=== PATIENT | male | born 1970 | race Caucasian/White ===

== ENCOUNTER 2018-08-18 09:01 | Inpatient (IN) | payer OTHER ==
[2018-08-18 09:38] VITALS: BMI 29.8
--- NOTE | 2018-08-18 10:17 | HP ---
CIWA Score Nausea/Vomitin Muscle Tremors: 2 Anxiety: 2 Agitation: 2 Paroxysmal Sweats: 1-Minimal Palms Moist Orientation: 0-Oriented Tacttile Disturbances: 1-Very Mild Itch/Numbness Auditory Disturbances: 1-Very Mild Visual Disturbances: 0-None Headache: 2-Mild CIWA-Ar Total Score: 13 - Admission Criteria OASAS Guidelines: Admission for Medically Managed Detox: Requires at least one of the followin. CIWA greater than 12 2. Seizures within the past 24 hours 3. Delirium tremens within the past 24 hours 4. Hallucinations within the past 24 hours 5. Acute intervention needed for co occurring medical disorder 6. Acute intervention needed for co occurring psychiatric disorder 7. Severe withdrawal that cannot be handled at a lower level of care (continued vomiting, continued diarrhea, abnormal vital signs) requiring intravenous medication and/or fluids 8. Admission ROS S - [facility] Chief Complaint: i i need help to stop drinking alcohol.cocaine,marijuana,mmtp 110 mgs/day,last medicated 08/17/18 multiple admissions in detox,last detox 05/15 at [facility] hypertension below knee amputation right 05/15 at [facility] hiv since 1990 seizure last 05/15 syncope alcohol related nicotine dependence 4 cigarette/day,does not need nicotine replacement confined to wheelchair,no prosthesis hypertension cirrhosis longest sobriety 15 years plan for rehab Allergies/Adverse Reactions: Allergies Allergy/AdvReac Type Severity Reaction Status Date / Time bee venom protein (honey bee) Allergy Verified 08/18/18 09:28 levofloxacin Allergy Verified 08/18/18 09:28 quetiapine [From Seroquel] Allergy Verified 08/18/18 09:28 History of Present Illness: this 47 years old male with alcohol dependence,cocaine,marijuana dependence, heroin abused,mmtp 110 mgs/day,last medictaed today, for detox as mentioned in chief complaint Exam Limitations: No Limitations - Ebola screening Have you traveled outside of the country in the last 21 days: No Have you had contact with anyone from an Ebola affected area: No Do you have a fever: No - Review of Systems Constitutional: Chills, Loss of Appetite, Night Sweats, Changes in sleep, Weakness, Unintentional Wgt. Loss EENT: reports: Tearing, Nose Congestion Respiratory: reports: Other (copd) Cardiac: reports: No Symptoms Reported GI: reports: Nausea, Poor Appetite, Abdominal cramping : reports: No Symptoms Reported Musculoskeletal: reports: Back Pain, Muscle Pain Integumentary: reports: Dryness Neuro: reports: Headache, Tremors Endocrine: reports: No Symptoms Reported Hematology: reports: No Symptoms Reported, Other (hiv) Psychiatric: reports: No Sypmtoms Reported, Judgement Intact, Mood/Affect Appropiate, Orientated x3, other (bipolar disorder) Patient History - Patient Medical History Hx Anemia: No Hx Asthma: No Hx Chronic Obstructive Pulmonary Disease (COPD): Yes (on albuterol and symbicort ) Hx Cancer: No Hx Cardiac Disorders: No Hx Congestive Heart Failure: No Hx Hypertension: Yes (non compliance) Hx Hypercholesterolemia: Yes (non compliance) Hx Pacemaker: No HX Cerebrovascular Accident: No Hx Seizures: Yes (last 05/15) Hx Dementia: No Hx Diabetes: No Hx Gastrointestinal Disorders: No Hx Liver Disease: No Hx Genitourinary Disorders: No Hx Sexually Transmitted Disorders: No (gonorrhea) Hx Renal Disease (ESRD): No Hx Thyroid Disease: No Hx Human Immunodeficiency Virus (HIV): Yes (since 1990) Hx Hepatitis C: No Hx Depression: No Hx Suicide Attempt: Yes (try to hang himsel,saved by exwife) Hx Bipolar Disorder: Yes (no medication) Hx Schizophrenia: No Other Medical History: no suicidal,no homicidal - Patient Surgical History Past Surgical History: Yes Hx Orthopedic Surgery: Yes (fx right ankle in 2005) Other Surgical History: below knee amputation right 05/15 in [facility] - PPD History Previous Implant?: Yes Documented Results: Negative w/proof Implanted On Prior [facility] Admission?: No PPD to be Administered?: Yes - Smoking Cessation Smoking history: Current every day smoker Have you smoked in the past 12 months: Yes Aproximately how many cigarettes per day: 5 Cigars Per Day: 0 Hx Chewing Tobacco Use: No Initiated information on smoking cessation: Yes 'Breaking Loose' booklet given: 08/18/18 - Substance & Tx. History Hx Alcohol Use: Yes Hx Substance Use: Yes Substance Use Type: Alcohol, Cocaine, Heroin, Marijuana Hx Substance Use Treatment: Yes (05/15 [facility]) - Substances abused Alcohol Substance route: Oral Frequency: Daily Amount used: 4 PINTS OF VODKA Age of first use: 14 Date of last use: 08/17/18 Cocaine Substance route: Smoking Frequency: Daily Amount used: 100$ Age of first use: 17 Date of last use: 08/17/18 Marijuana/Hashish Substance route: Smoking Frequency: 1-2 times per week Amount used: 10$ Age of first use: 12 Date of last use: 08/12/18 Heroin Substance route: Injection Frequency: 1-3 times last 30 days Amount used: 1 bag Age of first use: 15 Date of last use: 08/17/18 Family Disease History - Family Disease History Family Disease History: Other: Father (dsa,) Admission Physical Exam S - Vital Signs Vital Signs: Vital Signs - 24 hr 08/18/18 09:29 Temperature 97.3 F L Pulse Rate 67 Respiratory 18 Rate Blood Pressure 148/95 - Physical General Appearance: Yes: Moderate Distress, Tremorous, Irritable, Sweating, Anxious HEENTM: Yes: Normal ENT Inspection, CAMI, Pharynx Normal Respiratory: Yes: Within Normal Limits, Lungs Clear, Normal Breath Sounds Neck: Yes: Within Normal Limits, No masses,lesions,Nodules, Supple, Trachea in good position Breast: Yes: Within Normal Limits Cardiology: Yes: Within Normal Limits, Regular Rhythm, Regular Rate, S1, S2 Abdominal: Yes: Within Normal Limits, Normal Bowel Sounds, Non Tender, Soft Genitourinary: Yes: Within Normal Limits Back: Yes: Muscle Spasm Musculoskeletal: Yes: Back pain, Muscle Pain Extremities: Yes: Tremors, Other (s/p below knee amputation right) Neurological: Yes: poundmaster II-XII NML intact, Fully Oriented, Alert, Motor Strength 5/5 Integumentary: Yes: Dry Lymphatic: Yes: Within Normal Limits - Diagnostic (1) Alcohol dependence with uncomplicated withdrawal Current Visit: Yes Status: Acute (2) Cocaine dependence Current Visit: Yes Status: Acute (3) Cannabis abuse Current Visit: Yes Status: Acute (4) Heroin abuse Current Visit: Yes Status: Acute (5) Methadone maintenance therapy patient Current Visit: Yes Status: Acute (6) HIV (human immunodeficiency virus infection) Current Visit: Yes Status: Acute (7) COPD (chronic obstructive pulmonary disease) Current Visit: Yes Status: Acute (8) IVDU (intravenous drug user) Current Visit: Yes Status: Acute (9) Dehydration Current Visit: Yes Status: Acute (10) History of right below knee amputation Current Visit: Yes Status: Acute (11) Wheelchair confinement Current Visit: Yes Status: Acute (12) Cirrhosis Current Visit: Yes Status: Acute (13) Bipolar disorder Current Visit: Yes Status: Acute (14) History of suicide attempt Current Visit: Yes Status: Acute Cleared for Admission [facility] - Detox or Rehab [facility] Level of Care: Medically Managed (for ativan regimen) Inpatient Rehab Admission - Rehab Decision to Admit Inpatient rehab admission?: No
[2018-08-18] MEDS ORDERED: hydrOXYzine PAMOATE 25 MG CAPSULE (FP) PO PRN (10:37)
[2018-08-18] MEDS ORDERED: IBUPROFEN 400 MG TABLET (FP) PO PRN (10:37)
[2018-08-18] MEDS ORDERED: LORazepam 1 MG TABLET PO PRN (10:37)
[2018-08-18] MEDS ORDERED: BISMUTH SUBSALICYLATE 262 MG/15 ML BTL PO PRN (10:37)
[2018-08-18] MEDS ORDERED: ACETAMINOPHEN 325 MG TABLET (FP) PO PRN ×2 (10:37)
[2018-08-18] MEDS ORDERED: MELATONIN 5 MG TABLETS PO PRN (10:37)
[2018-08-18] MEDS ORDERED: METHOCARBAMOL 500 MG TABLET PO PRN (10:37)
[2018-08-18] MEDS ORDERED: MAGNESIUM HYDROX 2400MG/30ML ORAL SUSPENSION 30 ML CUP PO PRN (10:37)
[2018-08-18] MEDS ORDERED: MAG HYDROX/AL HYDROX/SIMETH 30 ML UNIT-DOSE CUP PO PRN (10:37)
[2018-08-18] MEDS ORDERED: MAGNESIUM CITRATE 300 ML BOTTLE PO PRN (10:37)
[2018-08-18] MEDS ORDERED: MENTHOL/PHENOL 1 EACH UD MM PRN (10:37)
[2018-08-18] MEDS ORDERED: ALBUTEROL SO4 8 GM HFA INHALER IH PRN (10:43)
[2018-08-18] MEDS: LORazepam 2 MG TABLET PO SCH ×3 (11:36→22:15)
[2018-08-18] MEDS ORDERED: METHADONE HCL 10 MG TABLET PO ONE (11:37)
[2018-08-18] MEDS ORDERED: METHADONE 80 MG, METHADONE 30 MG PO ONE (11:45)
[2018-08-18] MEDS ORDERED: METHADONE HCL 10 MG TABLET ONE (11:48)
[2018-08-18] MEDS ORDERED: METHADONE HCL 40 MG DISPERSABLE TABLET ONE (11:48)
--- NOTE | 2018-08-18 12:30 | EKG ---
Test Reason : Blood Pressure : / mmHG Vent. Rate : 053 BPM Atrial Rate : 053 BPM P-R Int : 146 ms QRS Dur : 078 ms QT Int : 518 ms P-R-T Axes : 006 000 016 degrees QTc Int : 486 ms SINUS BRADYCARDIA PROLONGED QT ABNORMAL ECG NO PREVIOUS ECGS AVAILABLE Confirmed by CEDRIC BUTLER, ANITHA ([id number]) on 08/18/2018 12:29:26 PM Referred By: RONALDO CREWS Confirmed By:ANITHA STEELE MD
--- NOTE | 2018-08-18 13:09 | PN ---
[facility] Progress Note Note: right knee amputation ambulating with wheelchair patient's wheelchair can not pass bathroom door order crutches for interim ambulation device patient had physical rehab to learn to use crutches
[2018-08-18 14:42] LABS: ALBUMIN 3.2 g/dl (3.4-5.0); ALK PHOS 103 U/L (45-117); ANION GAP 8 MMOL/L (8-16); BILIRUBIN,TOTAL 0.6 mg/dL (0.2-1); BLOOD UREA NITROGEN 10 mg/dL (7-18); CALCIUM 8.9 mg/dL (8.5-10.1); CHLORIDE 100 mmol/L (98-107); CO2 27 mmol/L (21-32); CREATININE 0.9 mg/dL (0.55-1.3); GLUCOSE,RANDOM 75 mg/dL (74-106); POTASSIUM 3.6 mmol/L (3.5-5.1); SGOT/AST 28 U/L (15-37); SGPT/ALT 18 U/L (13-61); SODIUM 135 mmol/L (136-145); TOT PROT 7.4 g/dl (6.4-8.2)
[2018-08-18 14:43] LABS: HEMATOCRIT 35.9 % (35.4-49); HEMOGLOBIN 11.8 GM/dL (11.7-16.9); MCH 27.5 pg (25.7-33.7); MCHC 32.8 g/dl (32.0-35.9); MEAN CELL VOLUME 84.1 fl (80-96); MEAN PLT VOLUME 9.3 fl (7.5-11.1); PLATELET COUNT 64 K/MM3 (134-434); RBC 4.27 M/mm3 (4.00-5.60); RDW 21.1 % (11.9-15.9); WHITE BLOOD COUNT 3.1 K/mm3 (4.0-10.0)
[2018-08-18 15:07] LABS: EPI CELLS 1.2 /HPF (0-5/HPF); URINE APPEARANCE CLEAR; URINE BACTERIA 1.5 /hpf (NEGATIVE); URINE BILIRUBIN NEGATIVE (NEGATIVE); URINE CASTS 3 /lpf (0-8); URINE COLOR DK YELLOW; URINE GLUCOSE (UA) NEGATIVE (NEGATIVE); URINE KETONE TRACE (NEGATIVE); URINE LEUK ESTERASE TRACE (NEGATIVE); URINE NITRITE NEGATIVE (NEGATIVE); URINE PROTEIN TRACE (NEGATIVE); URINE RBC 76 /hpf (0-4); URINE WBC 2 /hpf (0-5)
[2018-08-18 15:24] LABS: URINE CRYSTALS CALCIUM OXALATE /hpf
[2018-08-18] MEDS: THIAMINE HCL 100 MG TABLET (FP) PO SCH (22:15)
[2018-08-18] MEDS: BUDESONIDE/FORMETEROL FUMARATE 160/4.5 mcg INHALER IH SCH (22:19)
[2018-08-19] MEDS ORDERED: METHADONE HCL 10 MG TABLET ONE (04:22)
[2018-08-19] MEDS ORDERED: METHADONE HCL 40 MG DISPERSABLE TABLET ONE (04:22)
[2018-08-19] MEDS: LORazepam 2 MG TABLET PO SCH (05:18)
[2018-08-19] MEDS: METHADONE 80 MG, METHADONE 30 MG PO SCH (05:18)
[2018-08-19] MEDS ORDERED: METHADONE HCL 40 MG DISPERSABLE TABLET PO SCH (06:00)
[2018-08-19] MEDS: PRENATAL VITAMINS W/ FOLIC ACID TABLET (FP) PO SCH (10:18)
[2018-08-19] MEDS: BUDESONIDE/FORMETEROL FUMARATE 160/4.5 mcg INHALER IH SCH ×2 (10:18→22:55)
[2018-08-19] MEDS: PATIENT'S OWN MEDICATION (NON-FORMULARY) (Elviteg/Cob/Emtri/Tenof Alafen 1 EACH) PO SCH (10:18)
--- NOTE | 2018-08-19 10:36 | PN ---
[facility] CIWA - CIWA Score Nausea/Vomitin-Mild Nausea/No Vomiting Muscle Tremors: 3 Anxiety: 1-Mildly Anxious Agitation: 2 Paroxysmal Sweats: 1-Minimal Palms Moist Orientation: 2-Disoriented Date<2 days Tacttile Disturbances: 0-None Auditory Disturbances: 0-None Visual Disturbances: 0-None Headache: 1-Very Mild CIWA-Ar Total Score: 11 [facility] Progress Note (SOAP) Subjective: right below knee amputatin on 04/2018 ambulating with wheelchair and crutches patient wants to return to [facility] where his mother lives after detox Objective: 08/19/18 10:34 Vital Signs Temperature 96 F L 08/19/18 09:12 Pulse Rate 78 08/19/18 09:12 Respiratory Rate 18 08/19/18 09:12 Blood Pressure 148/82 08/19/18 09:12 O2 Sat by Pulse Oximetry (%) Laboratory Last Values WBC 3.1 K/mm3 (4.0-10.0) L 08/18/18 11:00 RBC 4.27 M/mm3 (4.00-5.60) 08/18/18 11:00 Hgb 11.8 GM/dL (11.7-16.9) 08/18/18 11:00 Hct 35.9 % (35.4-49) 08/18/18 11:00 MCV 84.1 fl (80-96) 08/18/18 11:00 MCH 27.5 pg (25.7-33.7) 08/18/18 11:00 MCHC 32.8 g/dl (32.0-35.9) 08/18/18 11:00 RDW 21.1 % (11.9-15.9) H 08/18/18 11:00 Plt Count 64 K/MM3 (134-434) L 08/18/18 11:00 MPV 9.3 fl (7.5-11.1) 08/18/18 11:00 Sodium 135 mmol/L (136-145) L 08/18/18 11:00 Potassium 3.6 mmol/L (3.5-5.1) 08/18/18 11:00 Chloride 100 mmol/L (98-107) 08/18/18 11:00 Carbon Dioxide 27 mmol/L (21-32) 08/18/18 11:00 Anion Gap 8 MMOL/L (8-16) 08/18/18 11:00 BUN 10 mg/dL (7-18) 08/18/18 11:00 Creatinine 0.9 mg/dL (0.55-1.3) 08/18/18 11:00 Creat Clearance w eGFR 90.45 (>60) 08/18/18 11:00 Random Glucose 75 mg/dL (74-106) 08/18/18 11:00 Calcium 8.9 mg/dL (8.5-10.1) 08/18/18 11:00 Total Bilirubin 0.6 mg/dL (0.2-1) 08/18/18 11:00 AST 28 U/L (15-37) 08/18/18 11:00 ALT 18 U/L (13-61) 08/18/18 11:00 Alkaline Phosphatase 103 U/L (45-117) 08/18/18 11:00 Total Protein 7.4 g/dl (6.4-8.2) 08/18/18 11:00 Albumin 3.2 g/dl (3.4-5.0) L 08/18/18 11:00 Urine Color Dk yellow 08/18/18 12:00 Urine Appearance Clear 08/18/18 12:00 Urine pH 6.0 (5.0-8.0) 08/18/18 12:00 Ur Specific [place] 1.022 (1.010-1.035) 08/18/18 12:00 Urine Protein Trace (NEGATIVE) 08/18/18 12:00 Urine Glucose (UA) Negative (NEGATIVE) 08/18/18 12:00 Urine Ketones Trace (NEGATIVE) H 08/18/18 12:00 Urine Blood 2+ (NEGATIVE) H 08/18/18 12:00 Urine Nitrite Negative (NEGATIVE) 08/18/18 12:00 Urine Bilirubin Negative (NEGATIVE) 08/18/18 12:00 Urine Urobilinogen 1.0 mg/dL (0.2-1.0) 08/18/18 12:00 Ur Leukocyte Esterase Trace (NEGATIVE) 08/18/18 12:00 Urine WBC (Auto) 2 /hpf (0-5) 08/18/18 12:00 Urine RBC (Auto) 76 /hpf (0-4) 08/18/18 12:00 Urine Casts (Auto) 3 /lpf (0-8) 08/18/18 12:00 U Epithel Cells (Auto) 1.2 /HPF (0-5/HPF) 08/18/18 12:00 Urine Crystals (Auto) Calcium oxalate /hpf 08/18/18 12:00 Urine Bacteria (Auto) 1.5 /hpf (NEGATIVE) 08/18/18 12:00 RPR Titer Nonreactive (NONREACTIVE) 08/18/18 11:00 lab noted Assessment: 08/19/18 10:35 alcohol withdrawal sx Plan: continue detox
[2018-08-19] MEDS ORDERED: LORazepam 1 MG TABLET PO ONE (11:50)
--- NOTE | 2018-08-19 12:18 | CONSULT ---
[facility] Psychiatric Consult - Data Date of interview: 08/19/18 Admission source: [facility] Identifying data: Patient is a 47 year male, , father of two, unemployed , and is supported by [employer]. This is patient's first admission to detox at [facility]. Patient admitted to for alcohol, cocaine, marijuana and opiate dependence. Substance Abuse History: Smoking Cessation. Smoking history: Current every day smoker. Have you smoked in the past 12 months: Yes. Aproximately how many cigarettes per day: 5. Cigars Per Day: 0. Hx Chewing Tobacco Use: No. Initiated information on smoking cessation: Yes. 'Breaking Loose' booklet given : 08/18/18. - Substance & Tx. History. Hx Alcohol Use: Yes. Hx Substance Use : Yes. Substance Use Type: Alcohol, Cocaine, Heroin, Marijuana. Hx Substance Use Treatment: Yes (05/15 [facility]). - Substances abused. Alcohol. Substance route: Oral. Frequency: Daily. Amount used: 4 PINTS OF VODKA. Age of first use: 14. Date of last use: 08/17/18. Cocaine. Substance route: Smoking. Frequency: Daily. Amount used: 100$. Age of first use: 17. Date of last use: 08/17/18. Marijuana/Hashish. Substance route: Smoking. Frequency : 1-2 times per week. Amount used: 10$. Age of first use: 12. Date of last use: 08/12/18. Heroin. Substance route: Injection. Frequency: 1-3 times last 30 days. Amount used: 1 bag. Age of first use: 15. Date of last use: Medical History: Significant for fx right ankle in 2005, below knee amputation right 05/15 in [facility], hypertension, Hypercholesterolemia, HIV, Seizures Psychiatric History: Patient reports h/o multiple psychiatric hospitalizations, most recently five years ago at [facility] in [place], [place] after having manic symtoms. He reports being admitted for three weeks and was diagnosed with bipolar disorder. Patient is also known to [facility]. Mr. Luis reports a total of two suicide attempts by overdose and attempting to hang himself. Mr. Luis reports most recently receiving outpatient psychiatric care at [facility] two years ago. He reports being tried on depakote + lithium+ ativan+ klonopin + Seroquek (allergic) + trazodone in the past. Patient has not accepted psychotropic medications in two years and has not follow up with outpatient care. At present, no manic, depressive or psychotic symptoms noted. Patient complaining of difficulty sleeping. Physical/Sexual Abuse/Trauma History: denies. Mental Status Exam - Mental Status Exam Alert and Oriented to: Time, Place, Person Cognitive Function: Good Patient Appearance: Well Groomed Mood: Euthymic Affect: Mood Congruent Patient Behavior: Fatigued, Cooperative Speech Pattern: Clear Voice Loudness: Moderately Soft/Quiet Thought Process: Goal Oriented Thought Disorder: Not Present Hallucinations: Denies Suicidal Ideation: Denies Homicidal Ideation: Denies Insight/Judgement: Poor Sleep: Poorly Appetite: Fair Muscle strength/Tone: Normal Gait/Station: Normal Psychiatric Findings - Problem List ([place] 1, 2,3) (1) Alcohol dependence with uncomplicated withdrawal Current Visit: Yes Status: Acute (2) Cocaine dependence Current Visit: Yes Status: Acute (3) Heroin abuse Current Visit: Yes Status: Acute (4) Methadone maintenance therapy patient Current Visit: Yes Status: Acute (5) Substance induced mood disorder Current Visit: Yes Status: Acute (6) Substance-induced sleep disorder Current Visit: Yes Status: Acute - Initial Treatment Plan Initial Treatment Plan: Psychoeducation provided. Detoxification in progress. Patient refusing to accept trazodone and stated he is allergic to seroquel. Will order Belsomra 10mg HS. Benefits and side effects discussed. Verbal consent given.
[2018-08-19] MEDS: LORazepam 1 MG TABLET PO SCH ×3 (12:31→22:09)
[2018-08-19] MEDS: SUVOREXANT 10 MG TABLET PO PRN (22:09)
[2018-08-19] MEDS: THIAMINE HCL 100 MG TABLET (FP) PO SCH (22:09)
[2018-08-20] MEDS ORDERED: METHADONE HCL 40 MG DISPERSABLE TABLET ONE (04:43)
[2018-08-20] MEDS ORDERED: METHADONE HCL 10 MG TABLET ONE (04:43)
[2018-08-20] MEDS: LORazepam 1 MG TABLET PO SCH (05:23)
[2018-08-20] MEDS: METHADONE 80 MG, METHADONE 30 MG PO SCH (05:23)
[2018-08-20] MEDS: PRENATAL VITAMINS W/ FOLIC ACID TABLET (FP) PO SCH (10:33)
[2018-08-20] MEDS: LORazepam 0.5 MG TABLET PO SCH ×3 (10:33→22:03)
[2018-08-20] MEDS: PATIENT'S OWN MEDICATION (NON-FORMULARY) (Elviteg/Cob/Emtri/Tenof Alafen 1 EACH) PO SCH (10:34)
[2018-08-20] MEDS: BUDESONIDE/FORMETEROL FUMARATE 160/4.5 mcg INHALER IH SCH ×2 (10:34→21:18)
--- NOTE | 2018-08-20 11:30 | PN ---
S CIWA - CIWA Score Nausea/Vomitin-Mild Nausea/No Vomiting Muscle Tremors: 3 Anxiety: 3 Agitation: 2 Paroxysmal Sweats: 1-Minimal Palms Moist Orientation: 0-Oriented Tacttile Disturbances: 0-None Auditory Disturbances: 0-None Visual Disturbances: 0-None Headache: 1-Very Mild CIWA-Ar Total Score: 11 S Progress Note (SOAP) Subjective: pt states he feels like he is in withdrawal with high COWs score O: Vital Signs - 24 hr 08/19/18 08/19/18 08/19/18 13:16 17:53 21:59 Temperature 98.4 F 96.8 F L 97.3 F L Pulse Rate 78 64 78 Respiratory 18 18 18 Rate Blood Pressure 137/89 145/95 132/93 08/20/18 08/20/18 08/20/18 00:30 03:30 06:28 Temperature 98.2 F Pulse Rate 66 Respiratory 18 16 18 Rate Blood Pressure 156/91 08/20/18 09:12 Temperature 98.9 F Pulse Rate 110 H Respiratory 18 Rate Blood Pressure 132/94 Laboratory Tests 08/18/18 08/18/18 08/18/18 11:00 11:00 11:00 WBC 3.1 L RBC 4.27 Hgb 11.8 Hct 35.9 MCV 84.1 MCH 27.5 MCHC 32.8 RDW 21.1 H Plt Count 64 L MPV 9.3 Sodium 135 L Potassium 3.6 Chloride 100 Carbon Dioxide 27 Anion Gap 8 BUN 10 Creatinine 0.9 Creat Clearance w eGFR 90.45 Random Glucose 75 Calcium 8.9 Total Bilirubin 0.6 AST 28 ALT 18 Alkaline Phosphatase 103 Total Protein 7.4 Albumin 3.2 L Urine Color Urine Appearance Urine pH Ur Specific [place] Urine Protein Urine Glucose (UA) Urine Ketones Urine Blood Urine Nitrite Urine Bilirubin Urine Urobilinogen Ur Leukocyte Esterase Urine WBC (Auto) Urine RBC (Auto) Urine Casts (Auto) U Epithel Cells (Auto) Urine Crystals (Auto) Urine Bacteria (Auto) RPR Titer Nonreactive 08/18/18 12:00 WBC RBC Hgb Hct MCV MCH MCHC RDW Plt Count MPV Sodium Potassium Chloride Carbon Dioxide Anion Gap BUN Creatinine Creat Clearance w eGFR Random Glucose Calcium Total Bilirubin AST ALT Alkaline Phosphatase Total Protein Albumin Urine Color Dk yellow Urine Appearance Clear Urine pH 6.0 Ur Specific [place] 1.022 Urine Protein Trace Urine Glucose (UA) Negative Urine Ketones Trace H Urine Blood 2+ H Urine Nitrite Negative Urine Bilirubin Negative Urine Urobilinogen 1.0 Ur Leukocyte Esterase Trace Urine WBC (Auto) 2 Urine RBC (Auto) 76 Urine Casts (Auto) 3 U Epithel Cells (Auto) 1.2 Urine Crystals (Auto) Calcium oxalate Urine Bacteria (Auto) 1.5 RPR Titer a/p: alcohol detox protocol- will add clonidine/vistaril and prn benzo for Sx relief
[2018-08-20] MEDS ORDERED: hydrOXYzine PAMOATE 50 MG CAPSULE (FP) PO PRN (11:34)
[2018-08-20] MEDS: LORazepam 0.5 MG TABLET PO PRN ×2 (12:15→18:33)
[2018-08-20] MEDS: cloNIDine HCL 0.1 MG TABLET PO PRN ×3 (12:15→21:18)
[2018-08-20] MEDS: THIAMINE HCL 100 MG TABLET (FP) PO SCH (21:18)
[2018-08-20] MEDS: SUVOREXANT 10 MG TABLET PO PRN (21:19)
[2018-08-21] MEDS ORDERED: METHADONE HCL 40 MG DISPERSABLE TABLET ONE (04:45)
[2018-08-21] MEDS ORDERED: METHADONE HCL 10 MG TABLET ONE (04:45)
[2018-08-21] MEDS: METHADONE 80 MG, METHADONE 30 MG PO SCH (05:52)
[2018-08-21] MEDS: LORazepam 0.5 MG TABLET PO SCH ×2 (05:52→10:09)
[2018-08-21] MEDS: PATIENT'S OWN MEDICATION (NON-FORMULARY) (Elviteg/Cob/Emtri/Tenof Alafen 1 EACH) PO SCH (10:08)
[2018-08-21] MEDS: PRENATAL VITAMINS W/ FOLIC ACID TABLET (FP) PO SCH (10:09)
[2018-08-21] MEDS: BUDESONIDE/FORMETEROL FUMARATE 160/4.5 mcg INHALER IH SCH (10:09)
[2018-08-21] MEDS ORDERED: PANTOPRAZOLE 40 MG TABLET (FP) PO SCH (11:15)
--- NOTE | 2018-08-21 14:02 | DS ---
[facility] Detox Discharge Summary Admission Date: 08/18/18 Discharge Date: 08/21/18 - History Present History: Alcohol Dependence, Cannabis Dependence, Cocaine Dependence, Opioid Dependence, MMTP Additional Comments: PATIENT SCHEDULED FOR DISCHARGE FROM DETOX UNIT TO DAY. PATIENT GOING TO [facility] ([facility]) FOR AFTERCARE. PATIENT WAS DISCHARGED FROM DETOX UNIT TO BE TAKEN OVER TO REHAB UNIT IN STABLE MEDICAL CONDITION. Pertinent Past History: Cirrhosis Of Liver, HTN, H.I.V., History of right Below-Knee Amputation, History Of Seizures, History of Syncope, Nicotine Dependence, Use Of Wheelchair to Assist with Movement, C.O.P.D., Hypercholesterolemia, History Of Suicide Attempt, Bipolar Disorder, M.M.T.P., Dehydration, History Of I.V.D.U. - Physical Exam Results Vital Signs: Vital Signs Temperature 96.7 F L 08/21/18 10:31 Pulse Rate 97 H 08/21/18 10:31 Respiratory Rate 18 08/21/18 10:31 Blood Pressure 101/77 08/21/18 10:31 O2 Sat by Pulse Oximetry (%) Pertinent Admission Physical Exam Findings: WITHDRAWAL SYMPTOMS. Laboratory Tests 08/18/18 08/18/18 08/18/18 11:00 11:00 11:00 WBC 3.1 L RBC 4.27 Hgb 11.8 Hct 35.9 MCV 84.1 MCH 27.5 MCHC 32.8 RDW 21.1 H Plt Count 64 L MPV 9.3 Sodium 135 L Potassium 3.6 Chloride 100 Carbon Dioxide 27 Anion Gap 8 BUN 10 Creatinine 0.9 Creat Clearance w eGFR 90.45 Random Glucose 75 Calcium 8.9 Total Bilirubin 0.6 AST 28 ALT 18 Alkaline Phosphatase 103 Total Protein 7.4 Albumin 3.2 L Urine Color Urine Appearance Urine pH Ur Specific [place] Urine Protein Urine Glucose (UA) Urine Ketones Urine Blood Urine Nitrite Urine Bilirubin Urine Urobilinogen Ur Leukocyte Esterase Urine WBC (Auto) Urine RBC (Auto) Urine Casts (Auto) U Epithel Cells (Auto) Urine Crystals (Auto) Urine Bacteria (Auto) RPR Titer Nonreactive 08/18/18 12:00 WBC RBC Hgb Hct MCV MCH MCHC RDW Plt Count MPV Sodium Potassium Chloride Carbon Dioxide Anion Gap BUN Creatinine Creat Clearance w eGFR Random Glucose Calcium Total Bilirubin AST ALT Alkaline Phosphatase Total Protein Albumin Urine Color Dk yellow Urine Appearance Clear Urine pH 6.0 Ur Specific [place] 1.022 Urine Protein Trace Urine Glucose (UA) Negative Urine Ketones Trace H Urine Blood 2+ H Urine Nitrite Negative Urine Bilirubin Negative Urine Urobilinogen 1.0 Ur Leukocyte Esterase Trace Urine WBC (Auto) 2 Urine RBC (Auto) 76 Urine Casts (Auto) 3 U Epithel Cells (Auto) 1.2 Urine Crystals (Auto) Calcium oxalate Urine Bacteria (Auto) 1.5 RPR Titer LABS NOTED. - Treatment Hospital Course: Detox Protocol Followed, Detoxed Safely, Responded well, Discharged Condition Good, Rehab Referral Accepted Patient has Accepted a Rehab Referral to: [facility] ([place], [place]). - Medication Discharge Medications: Ambulatory Orders Budesonide/Formeterol Fumarate [SYMBICORT 160/4.5mcg -] 2 inh PO BID 08/18/18 Elviteg/Cob/Emtri/Tenof Alafen [Genvoya (Non-Formulary)] 1 each PO DAILY Gabapentin 800 mg PO TID 08/18/18 Methadone [Dolophine -] 110 mg PO DAILY 08/18/18 Omeprazole Magnesium [Prilosec] 30 mg PO DAILY 08/18/18 - Diagnosis (1) Alcohol dependence with uncomplicated withdrawal Current Visit: Yes Status: Acute (2) Bipolar disorder Current Visit: Yes Status: Acute Qualifiers: Active/Remission status: remission status unspecified Qualified Code(s): F31.9 - Bipolar disorder, unspecified (3) COPD (chronic obstructive pulmonary disease) Current Visit: Yes Status: Acute Qualifiers: COPD type: unspecified COPD Qualified Code(s): J44.9 - Chronic obstructive pulmonary disease, unspecified (4) Cannabis abuse Current Visit: Yes Status: Acute (5) Cirrhosis Current Visit: Yes Status: Acute Qualifiers: Hepatic cirrhosis type: unspecified hepatic cirrhosis Ascites presence: unspecified Qualified Code(s): K74.60 - Unspecified cirrhosis of liver (6) Cocaine dependence Current Visit: Yes Status: Acute Qualifiers: Substance use status: in withdrawal Qualified Code(s): F14.23 - Cocaine dependence with withdrawal (7) Dehydration Current Visit: Yes Status: Acute (8) HIV (human immunodeficiency virus infection) Current Visit: Yes Status: Acute Qualifiers: HIV symptom status: unspecified Qualified Code(s): B20 - Human immunodeficiency virus [HIV] disease (9) Heroin abuse Current Visit: Yes Status: Acute (10) History of right below knee amputation Current Visit: Yes Status: Acute (11) History of suicide attempt Current Visit: Yes Status: Acute (12) IVDU (intravenous drug user) Current Visit: Yes Status: Acute (13) Methadone maintenance therapy patient Current Visit: Yes Status: Acute (14) Substance induced mood disorder Current Visit: Yes Status: Acute (15) Substance-induced sleep disorder Current Visit: Yes Status: Acute (16) Wheelchair confinement Current Visit: Yes Status: Acute - AMA Did Patient Leave Against Medical Advice: No
[2018-08-21 14:17] VITALS: BP 119/83; PULSE 86; TEMP 98.4
== END 2018-08-21 18:25 | disposition other institution (70) | DRG 773 ==
LOC: YASAS 09:01 → Y3N 10:47
PROVIDERS: ADMIT Surgery; ATTEND Surgery
PROC: HZ2ZZZZ Detoxification Services for Substance Abuse Treatment (ICD-10-PCS; principal; 2018-08-18)
DX: F10.230 Alcohol dependence with withdrawal, uncomplicated (principal); F14.20 Cocaine dependence, uncomplicated; F11.20 Opioid dependence, uncomplicated; F12.10 Cannabis abuse, uncomplicated; F31.9 Bipolar disorder, unspecified; F19.24 Other psychoactive substance dependence with psychoactive substance-induced mood disorder; F19.282 Other psychoactive substance dependence with psychoactive substance-induced sleep disorder; Z21 Asymptomatic human immunodeficiency virus [HIV] infection status; I10 Essential (primary) hypertension; G40.909 Epilepsy, unspecified, not intractable, without status epilepticus; K74.60 Unspecified cirrhosis of liver; E86.0 Dehydration; Z91.5 Personal history of self-harm; Z89.511 Acquired absence of right leg below knee; Z99.3 Dependence on wheelchair
CPT/HCPCS: 36415; 80053; 81003; 85027; 86593; 93005; 93010; J0735

== ENCOUNTER 2018-08-21 18:41 | Inpatient (IN) | payer OTHER ==
--- NOTE | 2018-08-21 14:08 | HP ---
[facility] Rehab Assess/Revision - Admission History Admitted to Rehab from: [facility] Date of Admission to Rehab: 08/21/2018 - Vital signs Vital Signs: NOTED; STABLE. - Findings Detox History & Physical reviewed: Yes Concur with findings: Yes Comments/Additional Findings: PATIENT'S MEDICAL / MEDICATION HISTORY REVIEWED PRIOR TO DISCHARGE FROM DETOX UNIT. PATIENT WAS DISCHARGED FROM DETOX UNIT TO BE TAKEN OVER TO REHAB UNIT IN STABLE MEDICAL CONDITION. Inpatient Rehab Admission - Rehab Decision to Admit Inpatient rehab admission?: Yes - Initial Determination Are CD services needed?: Yes Free of communicable disease: Yes Not in need of hospitalization: Yes - Rehab Admission Criteria Previous failed treatment: Yes Poor recovery environment: No Comorbidities: Yes Lacks judgement: Yes Patient is meeting Inpatient Rehab admission criteria:: Yes
[~2018-08-21 18:41] MED LIST: ACETAMINOPHEN 325 MG TABLET (FP) PO PRN; ALBUTEROL SO4 8 GM HFA INHALER IH PRN; LOPERAMIDE HCL 2 MG CAPSULE PO PRN; MAG HYDROX/AL HYDROX/SIMETH 30 ML UNIT-DOSE CUP PO PRN; MAGNESIUM CITRATE 300 ML BOTTLE PO PRN; MAGNESIUM HYDROX 2400MG/30ML ORAL SUSPENSION 30 ML CUP PO PRN; MENTHOL/PHENOL 1 EACH UD MM PRN; P-EPHED 60MG/TRIPROLIDI 2.5MG TABLET PO PRN; guaiFENesin 200 MG/10 ML 10 ML UNIT-DOSE CUPS PO PRN
[2018-08-21] MEDS: THIAMINE HCL 100 MG TABLET (FP) PO SCH (21:45)
[2018-08-21] MEDS: BUDESONIDE/FORMETEROL FUMARATE 160/4.5 mcg INHALER IH SCH (21:45)
[2018-08-22] MEDS ORDERED: METHADONE HCL 10 MG TABLET PO SCH (06:00)
[2018-08-22] MEDS: METHADONE 80 MG, METHADONE 30 MG PO SCH (06:01)
[2018-08-22] MEDS ORDERED: METHADONE HCL 10 MG TABLET ONE (06:01)
[2018-08-22] MEDS ORDERED: METHADONE HCL 40 MG DISPERSABLE TABLET ONE (06:01)
[2018-08-22] MEDS: PRENATAL VITAMINS W/ FOLIC ACID TABLET (FP) PO SCH (10:22)
[2018-08-22] MEDS: PATIENT'S OWN MEDICATION (NON-FORMULARY) (Elviteg/Cob/Emtri/Tenof Alafen 1 EACH) PO SCH (10:22)
[2018-08-22] MEDS: BUDESONIDE/FORMETEROL FUMARATE 160/4.5 mcg INHALER IH SCH ×2 (10:22→21:40)
[2018-08-22] MEDS: PANTOPRAZOLE 40 MG TABLET (FP) PO SCH (10:22)
[2018-08-22] MEDS: THIAMINE HCL 100 MG TABLET (FP) PO SCH (21:40)
[2018-08-22] MEDS: MELATONIN 5 MG TABLETS PO PRN (21:40)
[2018-08-23] MEDS ORDERED: METHADONE HCL 10 MG TABLET ONE (05:51)
[2018-08-23] MEDS ORDERED: METHADONE HCL 40 MG DISPERSABLE TABLET ONE (05:52)
[2018-08-23] MEDS: METHADONE 80 MG, METHADONE 30 MG PO SCH (05:53)
[2018-08-23] MEDS: PRENATAL VITAMINS W/ FOLIC ACID TABLET (FP) PO SCH (10:28)
[2018-08-23] MEDS: PATIENT'S OWN MEDICATION (NON-FORMULARY) (Elviteg/Cob/Emtri/Tenof Alafen 1 EACH) PO SCH (10:28)
[2018-08-23] MEDS: BUDESONIDE/FORMETEROL FUMARATE 160/4.5 mcg INHALER IH SCH ×2 (10:28→22:01)
[2018-08-23] MEDS: PANTOPRAZOLE 40 MG TABLET (FP) PO SCH (10:28)
[2018-08-23] MEDS: MELATONIN 5 MG TABLETS PO PRN (22:00)
[2018-08-23] MEDS: THIAMINE HCL 100 MG TABLET (FP) PO SCH (22:00)
[2018-08-24] MEDS ORDERED: METHADONE HCL 40 MG DISPERSABLE TABLET ONE (02:30)
[2018-08-24] MEDS ORDERED: METHADONE HCL 10 MG TABLET ONE (02:30)
[2018-08-24] MEDS: METHADONE 80 MG, METHADONE 30 MG PO SCH (06:08)
[2018-08-24] MEDS: BUDESONIDE/FORMETEROL FUMARATE 160/4.5 mcg INHALER IH SCH ×2 (10:19→21:51)
[2018-08-24] MEDS: PRENATAL VITAMINS W/ FOLIC ACID TABLET (FP) PO SCH (10:19)
[2018-08-24] MEDS: PANTOPRAZOLE 40 MG TABLET (FP) PO SCH (10:19)
[2018-08-24] MEDS: PATIENT'S OWN MEDICATION (NON-FORMULARY) (Elviteg/Cob/Emtri/Tenof Alafen 1 EACH) PO SCH (10:19)
--- NOTE | 2018-08-24 16:23 | CONSULT ---
[facility] Psychiatric Consult - Data Date of interview: 08/24/18 Admission source: [facility] Identifying data: First admission to [facility] for this 47 y/o male, who completed detoxification treatment on [address] [place] [address] and transitioned to rehabilitative care at [address]. Patient is , a father of two , homeless, disabled (right below the knee amputee), unemployed and supported on [employer] benefits. Substance Abuse History: Confirmed by the patient in this interview. Details in current [facility] report as follows : Smoking history: Current every day smoker. Have you smoked in the past 12 months: Yes. Aproximately how many cigarettes per day: 5. Cigars Per Day: 0. Hx Chewing Tobacco Use: No. Initiated information on smoking cessation: Yes. 'Breaking Loose' booklet given: . - Substance & Tx. History. Hx Alcohol Use: Yes. Hx Substance Use: Yes. Substance Use Type: Alcohol, Cocaine, Heroin, Marijuana. Hx Substance Use Treatment: Yes (05/15 [facility]). - Substances abused. Alcohol. Substance route: Oral. Frequency: Daily. Amount used: 4 PINTS OF VODKA. Age of first use: 14. Date of last use: 08/17/18. Cocaine. Substance route: Smoking. Frequency: Daily. Amount used: 100$. Age of first use: 17. Date of last use: 08/17/18. Marijuana/Hashish. Substance route: Smoking. Frequency : 1-2 times per week. Amount used: 10$. Age of first use: 12. Date of last use: 08/12/18. Heroin. Substance route: Injection. Frequency: 1-3 times last 30 days. Amount used: 1 bag. Age of first use: 15. Date of last use: Medical History: Medical profile is remarkable for orthosurgery (fracture ofright ankle in 2005 + right below knee amputation in April 2018 at [facility]), hypertension, hypercholesterolemia, HIV infection since 1990 (on ART drugs),withdrawal-related seizures and cirrhosis of the liver. Patient ambulates in a wheelchair. Psychiatric History: Patient admits to a history of multiple psychiatric hospitalizations, as recently as 2 1/2 years ago at [facility] ([facility] unit) in the [place] He is also known to [facility] and [facility] located in [place], [place]. Mr Luis is diagnosed with Bipolar Disorder. Mr. Luis reports total non adherence to OPD care since his discharge from [facility] two anf a half years ago. Patient reports a total of two suicide attempts (overdose with medications + hanging in 1996). Has received trials of depakote + lithium seroquel in the past. Declines to resume antipsychotics or mood stabilizers. Patient is currently on metahdone maintenance (110 mg/day) at the [facility] program. Physical/Sexual Abuse/Trauma History: Stressors : homelessness, financial difficulties, severe physical disabilities and serious medical illnesses. Additional Comment: Toxicology not available. Mental Status Exam - Mental Status Exam Alert and Oriented to: Time, Place, Person Cognitive Function: Good Patient Appearance: Well Groomed (sitting in a wheelchair, overweight, right below the knee amputee, tattoos all over : neck, face, upper extremities) Mood: Hopeful Affect: Appropriate, Normal Range Patient Behavior: Appropriate, Cooperative Speech Pattern: Clear, Appropriate Voice Loudness: Normal Thought Process: Goal Oriented Thought Disorder: Not Present Hallucinations: Denies Suicidal Ideation: Denies Homicidal Ideation: Denies Insight/Judgement: Fair Sleep: Poorly, Difficulty falling asleep Appetite: Good Muscle strength/Tone: Normal Gait/Station: Other Additional Comments: wheelchair bound Psychiatric Findings - Problem List (M[place]leary 1, 2,3) (1) Alcohol dependence Current Visit: Yes Status: Chronic (2) Opioid dependence on agonist therapy Current Visit: Yes Status: Chronic (3) Cannabis abuse Current Visit: Yes Status: Chronic (4) Cocaine dependence Current Visit: Yes Status: Chronic Qualifiers: Substance use status: in withdrawal Qualified Code(s): F14.23 - Cocaine dependence with withdrawal (5) Substance induced mood disorder Current Visit: Yes Status: Chronic (6) Insomnia Current Visit: Yes Status: Chronic (7) History of bipolar disorder Current Visit: Yes Status: Chronic Comment: Non compliant with OPD care. (8) Non-compliance Current Visit: Yes Status: Chronic - Initial Treatment Plan Initial Treatment Plan: Psychoeducation. Sleep hygiene. Support. AA/NA meetings. Motivational counseling. Insomnia is addressed with belsomra 10 mg po hs prn. Side effects/benefits discussed with patient. Mr Luis is agreeable with this plan of care. Observation.
[2018-08-24] MEDS: SUVOREXANT 10 MG TABLET PO PRN (21:50)
[2018-08-24] MEDS: THIAMINE HCL 100 MG TABLET (FP) PO SCH (21:51)
[2018-08-25] MEDS: METHADONE 80 MG, METHADONE 30 MG PO SCH (06:11)
[2018-08-25] MEDS ORDERED: METHADONE HCL 10 MG TABLET ONE (06:11)
[2018-08-25] MEDS ORDERED: METHADONE HCL 40 MG DISPERSABLE TABLET ONE (06:11)
[2018-08-25] MEDS: BUDESONIDE/FORMETEROL FUMARATE 160/4.5 mcg INHALER IH SCH ×2 (10:12→21:30)
[2018-08-25] MEDS: PATIENT'S OWN MEDICATION (NON-FORMULARY) (Elviteg/Cob/Emtri/Tenof Alafen 1 EACH) PO SCH (10:12)
[2018-08-25] MEDS: PANTOPRAZOLE 40 MG TABLET (FP) PO SCH (10:12)
[2018-08-25] MEDS: PRENATAL VITAMINS W/ FOLIC ACID TABLET (FP) PO SCH (10:12)
[2018-08-25] MEDS: THIAMINE HCL 100 MG TABLET (FP) PO SCH (21:30)
[2018-08-25] MEDS: SUVOREXANT 10 MG TABLET PO PRN (21:30)
[2018-08-25] MEDS: MELATONIN 5 MG TABLETS PO PRN (21:31)
[2018-08-26] MEDS ORDERED: METHADONE HCL 40 MG DISPERSABLE TABLET ONE (03:02)
[2018-08-26] MEDS ORDERED: METHADONE HCL 10 MG TABLET ONE (03:02)
[2018-08-26] MEDS: METHADONE 80 MG, METHADONE 30 MG PO SCH (05:54)
[2018-08-26] MEDS: BUDESONIDE/FORMETEROL FUMARATE 160/4.5 mcg INHALER IH SCH ×2 (10:54→21:13)
[2018-08-26] MEDS: PATIENT'S OWN MEDICATION (NON-FORMULARY) (Elviteg/Cob/Emtri/Tenof Alafen 1 EACH) PO SCH (10:54)
[2018-08-26] MEDS: PRENATAL VITAMINS W/ FOLIC ACID TABLET (FP) PO SCH (10:55)
[2018-08-26] MEDS: PANTOPRAZOLE 40 MG TABLET (FP) PO SCH (11:28)
[2018-08-26] MEDS: SUVOREXANT 10 MG TABLET PO PRN (21:12)
[2018-08-26] MEDS: MELATONIN 5 MG TABLETS PO PRN (21:13)
[2018-08-26] MEDS: THIAMINE HCL 100 MG TABLET (FP) PO SCH (21:14)
[2018-08-27] MEDS ORDERED: METHADONE HCL 40 MG DISPERSABLE TABLET ONE (04:02)
[2018-08-27] MEDS ORDERED: METHADONE HCL 10 MG TABLET ONE (04:02)
[2018-08-27] MEDS: METHADONE 80 MG, METHADONE 30 MG PO SCH (05:51)
[2018-08-27] MEDS: PATIENT'S OWN MEDICATION (NON-FORMULARY) (Elviteg/Cob/Emtri/Tenof Alafen 1 EACH) PO SCH (10:38)
[2018-08-27] MEDS: PANTOPRAZOLE 40 MG TABLET (FP) PO SCH (10:38)
[2018-08-27] MEDS: PRENATAL VITAMINS W/ FOLIC ACID TABLET (FP) PO SCH (10:39)
[2018-08-27] MEDS: BUDESONIDE/FORMETEROL FUMARATE 160/4.5 mcg INHALER IH SCH ×2 (10:40→21:48)
[2018-08-27] MEDS: THIAMINE HCL 100 MG TABLET (FP) PO SCH (21:48)
[2018-08-27] MEDS: MELATONIN 5 MG TABLETS PO PRN (21:48)
[2018-08-27] MEDS: SUVOREXANT 10 MG TABLET PO PRN (21:48)
[2018-08-28] MEDS ORDERED: METHADONE HCL 10 MG TABLET ONE (06:18)
[2018-08-28] MEDS ORDERED: METHADONE HCL 40 MG DISPERSABLE TABLET ONE (06:19)
[2018-08-28] MEDS: METHADONE 80 MG, METHADONE 30 MG PO SCH (06:19)
[2018-08-28] MEDS: PRENATAL VITAMINS W/ FOLIC ACID TABLET (FP) PO SCH (10:19)
[2018-08-28] MEDS: BUDESONIDE/FORMETEROL FUMARATE 160/4.5 mcg INHALER IH SCH ×2 (10:19→22:04)
[2018-08-28] MEDS: PANTOPRAZOLE 40 MG TABLET (FP) PO SCH (10:19)
[2018-08-28] MEDS: PATIENT'S OWN MEDICATION (NON-FORMULARY) (Elviteg/Cob/Emtri/Tenof Alafen 1 EACH) PO SCH (10:19)
[2018-08-28] MEDS: MELATONIN 5 MG TABLETS PO PRN (22:05)
[2018-08-28] MEDS: THIAMINE HCL 100 MG TABLET (FP) PO SCH (22:05)
[2018-08-29] MEDS ORDERED: METHADONE HCL 40 MG DISPERSABLE TABLET ONE (05:54)
[2018-08-29] MEDS ORDERED: METHADONE HCL 10 MG TABLET ONE (05:54)
[2018-08-29] MEDS: METHADONE 80 MG, METHADONE 30 MG PO SCH (05:55)
[2018-08-29] MEDS: PATIENT'S OWN MEDICATION (NON-FORMULARY) (Elviteg/Cob/Emtri/Tenof Alafen 1 EACH) PO SCH (11:16)
[2018-08-29] MEDS: PANTOPRAZOLE 40 MG TABLET (FP) PO SCH (11:17)
[2018-08-29] MEDS: BUDESONIDE/FORMETEROL FUMARATE 160/4.5 mcg INHALER IH SCH ×2 (11:17→23:25)
[2018-08-29] MEDS: PRENATAL VITAMINS W/ FOLIC ACID TABLET (FP) PO SCH (11:17)
[2018-08-29] MEDS: SUVOREXANT 10 MG TABLET PO PRN (22:04)
[2018-08-29] MEDS: THIAMINE HCL 100 MG TABLET (FP) PO SCH (22:04)
[2018-08-30] MEDS ORDERED: METHADONE HCL 10 MG TABLET ONE (05:57)
[2018-08-30] MEDS ORDERED: METHADONE HCL 40 MG DISPERSABLE TABLET ONE (05:57)
[2018-08-30] MEDS ORDERED: METHADONE HCL 10 MG TABLET PO SCH (06:00)
[2018-08-30] MEDS: METHADONE 80 MG, METHADONE 30 MG PO SCH (06:02)
[2018-08-30] MEDS: PATIENT'S OWN MEDICATION (NON-FORMULARY) (Elviteg/Cob/Emtri/Tenof Alafen 1 EACH) PO SCH (10:50)
[2018-08-30] MEDS: PRENATAL VITAMINS W/ FOLIC ACID TABLET (FP) PO SCH (10:52)
[2018-08-30] MEDS: PANTOPRAZOLE 40 MG TABLET (FP) PO SCH (10:52)
[2018-08-30] MEDS: BUDESONIDE/FORMETEROL FUMARATE 160/4.5 mcg INHALER IH SCH ×2 (10:53→21:48)
[2018-08-30] MEDS: SUVOREXANT 10 MG TABLET PO PRN (21:48)
[2018-08-30] MEDS: THIAMINE HCL 100 MG TABLET (FP) PO SCH (21:49)
[2018-08-31] MEDS ORDERED: METHADONE HCL 40 MG DISPERSABLE TABLET ONE (03:02)
[2018-08-31] MEDS ORDERED: METHADONE HCL 10 MG TABLET ONE (03:02)
[2018-08-31] MEDS: METHADONE 80 MG, METHADONE 30 MG PO SCH (06:08)
[2018-08-31 07:10] VITALS: TEMP 97.8
[2018-08-31] MEDS: PATIENT'S OWN MEDICATION (NON-FORMULARY) (Elviteg/Cob/Emtri/Tenof Alafen 1 EACH) PO SCH (10:51)
[2018-08-31] MEDS: PRENATAL VITAMINS W/ FOLIC ACID TABLET (FP) PO SCH (10:51)
[2018-08-31] MEDS: PANTOPRAZOLE 40 MG TABLET (FP) PO SCH (10:51)
[2018-08-31] MEDS: BUDESONIDE/FORMETEROL FUMARATE 160/4.5 mcg INHALER IH SCH ×2 (10:51→21:36)
[2018-08-31] MEDS: SUVOREXANT 10 MG TABLET PO PRN (21:35)
[2018-08-31] MEDS: THIAMINE HCL 100 MG TABLET (FP) PO SCH (21:35)
[2018-09-01] MEDS: METHADONE 80 MG, METHADONE 30 MG PO SCH (06:03)
[2018-09-01] MEDS ORDERED: METHADONE HCL 40 MG DISPERSABLE TABLET ONE (06:03)
[2018-09-01] MEDS ORDERED: METHADONE HCL 10 MG TABLET ONE (06:03)
[2018-09-01 07:11] VITALS: BP 136/85; PULSE 68
[2018-09-01] MEDS: BUDESONIDE/FORMETEROL FUMARATE 160/4.5 mcg INHALER IH SCH (09:30)
[2018-09-01] MEDS: PANTOPRAZOLE 40 MG TABLET (FP) PO SCH (09:30)
[2018-09-01] MEDS: PRENATAL VITAMINS W/ FOLIC ACID TABLET (FP) PO SCH (09:30)
[2018-09-01] MEDS: PATIENT'S OWN MEDICATION (NON-FORMULARY) (Elviteg/Cob/Emtri/Tenof Alafen 1 EACH) PO SCH (09:30)
--- NOTE | 2018-09-01 09:47 | PN ---
[facility] Progress Note Note: PT COMPLETED REHAB AND DISCHARGED TODAY. PT MET WITH HIS COUNSELOR, MS BLOSSOM LEONARDCHANTAL AND PT HAS BEEN REFERRED BACK TO HIS CD TREATMENT PROGRAM AT [facility] ON [address] [facility], [place], [place] . PT REPORTS HE HAS A PCP, DR. LOZA WITH [facility], [place], [place]. PT STATES HE HAS HIS MEDS AND REFILLS AT HIS PHARMACY AND WILL FOLLOW UP WITH HIS PCP FOR MEDICAL MANAGEMENT. PT IS ALERT O X 3. DENIES S/H/I. Home Medications Medication Instructions Recorded Budesonide/Formeterol Fumarate 2 inh PO BID 08/18/18 [SYMBICORT 160/4.5mcg -] Elviteg/Cob/Emtri/Tenof Alafen 1 each PO DAILY 08/18/18 [Genvoya (Non-Formulary)] Gabapentin 800 mg PO TID 08/18/18 Methadone [Dolophine -] 110 mg PO DAILY 08/18/18 Omeprazole Magnesium [Prilosec] 30 mg PO DAILY 08/18/18 Vital Signs 09/01/18 09/01/18 03:30 07:10 Temperature 97.8 F Pulse Rate 68 Respiratory 18 18 Rate Blood Pressure 136/85 NAD MEDICALLY STABLE PLAN:FOLLOW UP WITH CD AFTERCARE RECOMMENDED. FOLLOW UP WITH PCP FOR MEDICAL MANAGEMENT WITHIN 1-2 WEEKS AFTER DISCHARGE.
== END 2018-09-01 11:10 | disposition home or self-care (01) | DRG 772 ==
LOC: YASAS 18:41 → Y5N 18:46
PROVIDERS: ADMIT Neuromusculoskeletal Medicine & OMM; ATTEND Neuromusculoskeletal Medicine & OMM
PROC: HZ42ZZZ Group Counseling for Substance Abuse Treatment, Cognitive-Behavioral (ICD-10-PCS; principal; 2018-08-21)
DX: F10.20 Alcohol dependence, uncomplicated (principal); F11.20 Opioid dependence, uncomplicated; F14.20 Cocaine dependence, uncomplicated; F12.10 Cannabis abuse, uncomplicated; F17.210 Nicotine dependence, cigarettes, uncomplicated; F19.24 Other psychoactive substance dependence with psychoactive substance-induced mood disorder; I10 Essential (primary) hypertension; Z21 Asymptomatic human immunodeficiency virus [HIV] infection status; K74.60 Unspecified cirrhosis of liver; E78.00 Pure hypercholesterolemia, unspecified; Z89.511 Acquired absence of right leg below knee; Z87.438 Personal history of other diseases of male genital organs; Z88.1 Allergy status to other antibiotic agents; Z91.038 Other insect allergy status; Z91.14 Patient's other noncompliance with medication regimen; Z86.69 Personal history of other diseases of the nervous system and sense organs; Z99.3 Dependence on wheelchair; Z91.5 Personal history of self-harm

== ENCOUNTER 2018-09-26 10:51 | Inpatient (IN) | payer OTHER | END 2018-09-30 09:25 | disposition home or self-care (01) | LOC: YASAS 10:51 → Y3N 12:18 ==